=== PATIENT | male | born 1995 | race Caucasian/White ===

== ENCOUNTER 2024-05-07 22:14 | Emergency (ER) | payer MEDICAID ==
[~2024-05-07] VITALS: Ht 180.3 cm; Wt 72.6 kg
[2024-05-07 22:56] VITALS: BP 121/57; PULSE 60; RESP 18; TEMP 98.5; O2SAT 98
== END 2024-05-08 02:29 | disposition home or self-care (01) ==
LOC: MED 22:14
DX: S52.502A Unspecified fracture of the lower end of left radius, initial encounter for closed fracture (principal); X58.XXXA Exposure to other specified factors, initial encounter; Y93.89 Activity, other specified; Y92.89 Other specified places as the place of occurrence of the external cause; Y99.8 Other external cause status
CPT/HCPCS: 73110; 99283